=== PATIENT | male | born 1980 | race African-American/Black ===

== ENCOUNTER 2017-06-27 19:24 | Emergency (ER) | payer BC ==
[~2017-06-27] VITALS: Ht 195.6 cm; Wt 127.0 kg
[2017-06-28] MEDS ORDERED: IBUPROFEN 800MG TABLET PO ONE (00:30)
[2017-06-28 01:07] VITALS: BP 126/79
== END 2017-06-28 01:08 | disposition home or self-care (01) ==
LOC: ER 21:45
DX: S93.402A Sprain of unspecified ligament of left ankle, initial encounter (principal); F17.200 Nicotine dependence, unspecified, uncomplicated; Z98.890 Other specified postprocedural states; Z87.81 Personal history of (healed) traumatic fracture; V43.52XA Car driver injured in collision with other type car in traffic accident, initial encounter; Y93.89 Activity, other specified; Y92.488 Other paved roadways as the place of occurrence of the external cause
CPT/HCPCS: 73610; 73630; 99284

== ENCOUNTER 2018-04-16 21:18 | Emergency (ER) | payer BC ==
[~2018-04-16] VITALS: Ht 195.6 cm; Wt 128.0 kg
[2018-04-17] MEDS ORDERED: CYCLOBENZAPRINE 10MG TABLET PO ONE (02:00)
[2018-04-17] MEDS ORDERED: KETOROLAC 30MG/ML VIAL IV ONE (02:00)
[2018-04-17 05:27] VITALS: BP 112/79
== END 2018-04-17 05:27 | disposition home or self-care (01) ==
LOC: ER 21:18
DX: M54.5 Low back pain (principal); M54.2 Cervicalgia; M25.561 Pain in right knee; R51 Headache; F17.200 Nicotine dependence, unspecified, uncomplicated; V49.49XA Driver injured in collision with other motor vehicles in traffic accident, initial encounter; Y93.89 Activity, other specified; Y92.89 Other specified places as the place of occurrence of the external cause; Y99.8 Other external cause status; Z98.890 Other specified postprocedural states
CPT/HCPCS: 70450; 72125; 96374; 99284; J1885